=== PATIENT | female | born 1990 | race Hispanic/Latino ===

== ENCOUNTER 2017-01-25 22:50 | Emergency (ER) | payer MEDICAID ==
[2017-01-25] MEDS ORDERED: Albuterol-Ipratrop 3 mg / 0.5 (3 ml) UD INH STA (23:57)
[2017-01-26] MEDS ORDERED: Albuterol-Ipratrop 3 mg / 0.5 (3 ml) UD ONE (00:24)
--- NOTE | 2017-01-26 00:47 | C.PDOC ---
History Of Present Illness 26 y/o F c/o bilateral parasternal discomfort positionally and digitally reproducible for 2-3 days. With associated dry unproductive cough possibly related to asthma. Pt took regular albuterol with no improvement. Denies fever, chills, SOB, lightheadedness, diaphoresis, or any other complaints. Pt notes taking percocet for chronic chest discomfort. Time Seen by Provider: 01/25/17 23:50 Chief Complaint (Nursing): Shortness Of Breath History Per: Patient History/Exam Limitations: no limitations Onset/Duration Of Symptoms: Days Current Symptoms Are (Timing): Still Present Current Respiratory Medications: Albuterol Severity: Mild Associated Symptoms: denies: Fever, Chills, Sweating, Dizziness, Light- headedness Recent travel outside of the [place]: No Additional History Per: Patient Past Medical History Reviewed: Historical Data, Nursing Documentation, Vital Signs Vital Signs: Last Vital Signs Temp 98.3 F 01/26/17 01:06 Pulse 95 H 01/26/17 01:06 Resp 20 01/26/17 01:06 BP 123/84 01/26/17 01:06 Pulse Ox 99 01/26/17 06:31 - Medical History PMH: Asthma, Chronic Kidney Disease (kidney problem), Rheumatoid Arthritis Surgical History: - [facility] Procedures INJECT/INFUSE NEC (06/15/13) Family History: States: Unknown Family Hx - Social History Hx Tobacco Use: No Hx Alcohol Use: Yes Hx Substance Use: Yes - Immunization History Hx Tetanus Toxoid Vaccination: No Hx Influenza Vaccination: No Hx Pneumococcal Vaccination: No Review Of Systems Except As Marked, All Systems Reviewed And Found Negative. Constitutional: Negative for: Fever, Chills, Sweats Cardiovascular: Positive for: Chest Pain (Bilateral parasternal discomfort). Negative for: Light Headedness Respiratory: Negative for: Shortness of Breath Neurological: Negative for: Dizziness Physical Exam - Physical Exam Appears: Non-toxic, No Acute Distress, Other (Lethargic) Skin: Warm, Dry, No Rash Head: Atraumatic, Normacephalic Eye(s): bilateral: Abnormal Pupil (Pinpoint) Chest: Symmetrical, Tenderness (Bilateral parasternal area) Cardiovascular: Rhythm Regular Respiratory: Normal Breath Sounds, No Accessory Muscle Use, No Rales, No Rhonchi , No Wheezing Neurological/Psych: Oriented x3, Normal Speech ED Course And Treatment O2 Sat by Pulse Oximetry: 99 (RA) Pulse Ox Interpretation: Normal - Radiology CXR: Interpreted by Me CXR Interpretation: Yes: No Acute Disease Progress Note: prednisone, duoneb Reevaluation Time: 00:42 Reassessment Condition: Improved Medical Decision Making Medical Decision Making: Impression: 26 y/o F c/o bilateral parasternal discomfort positional digitally reproducable for 2-3 days [place] 90 [place] Percocet 10/325 each month regularly from PMD parasternal Costochondritis due to recent mild coughing ? related to asthma. clear lungs Pinpoint pupils due to regular percocet dosing from chronic pain due to Lupus- already on Plaquenil Disposition Doctor Will See Patient In The: Office Counseled Patient/Family Regarding: Studies Performed, Diagnosis - Disposition Referrals: Lila Cruz MD [Primary Care Provider] - Disposition: HOME/ ROUTINE Disposition Time: 00:49 Condition: GOOD Additional Instructions: Prednisone 40 daily for 4 more days Duoneb inhaled treatments duoneb every 3 hours Pepcid 20 mg @ night to prevent stomach irritation from the prednisone ice packs to the chest area 1/2 hour per hour, nothing hot. Follow up with Dr. Cruz in 2-3 days for re-evaluation. Consider other chronic pain syndrome regimens as the narcotics regimen is highly addictive and high risk for overdose Prescriptions: Albuterol/Ipratropium [Duoneb 3 MG/3 Ml-0.5 MG/3 Ml 3 Ml] 6 ml IH Q4H PRN #100 neb PRN Reason: asthma Prednisone [Deltasone] 40 mg PO DAILY #8 tablet Instructions: Costochondritis (ED) - Clinical Impression Clinical Impression: Cough, Chest pain - Scribe Statement The provider has reviewed the documentation as recorded by the Scribe Gera perez All medical record entries made by the Alvarezibe were at my direction and personally dictated by me. I have reviewed the chart and agree that the record accurately reflects my personal performance of the history, physical exam, medical decision making, and the department course for this patient. I have also personally directed, reviewed, and agree with the discharge instructions and disposition.
[2017-01-26 01:12] VITALS: BP 123/84; PULSE 95; RESP 20; TEMP 98.3
[2017-01-26 06:28] VITALS: O2SAT 99
--- NOTE | 2017-01-26 10:22 | RAD ---
HISTORY: As above. Chest pain. COMPARISON: No prior. FINDINGS: LUNGS: Mild venous congestion. Elevated right hemidiaphragm. Rounded nodular density at the right lung base may represent prominent nipple shadow. Correlation with nipple marker may be helpful. Mild patchy increased markings at the left lung base, nonspecific. Correlation with lateral view may be helpful. PLEURA: As above. CARDIOVASCULAR: Mild prominence of the heart. Nonspecific. OSSEOUS STRUCTURES: No significant abnormalities. VISUALIZED UPPER ABDOMEN: Normal. OTHER FINDINGS: None. IMPRESSION: Mild venous congestion. Elevated right hemidiaphragm. Rounded nodular density at the right lung base may represent prominent nipple shadow. Correlation with nipple marker may be helpful. Mild patchy increased markings at the left lung base, nonspecific. Correlation with lateral view may be helpful.
--- NOTE | 2017-01-26 14:00 | CARD ---
APPROVED REPORT EKG Measurement Heart [id number] <Conclusion> Normal sinus rhythm Low voltage QRS Borderline ECG
== END 2017-01-26 01:12 | disposition home or self-care (01) ==
LOC: SUPCPDRO 22:50 → C.ER 22:50
DX: R07.89 Other chest pain (principal); R05 Cough

== ENCOUNTER 2017-02-16 23:13 | Emergency (ER) | payer MEDICAID ==
[2017-02-16 23:50] VITALS: BP 109/69; PULSE 87; RESP 17; TEMP 97.9; O2SAT 99
--- NOTE | 2017-02-17 00:28 | C.PDOC ---
History Of Present Illness 26 year old female who presents to the ER with a complaint of a dry cough, sneezing, nasal congestion, and bilateral eye injection and discharge for the past 3 days. Patient states her baby has the same symptoms; denies SOB, fever, or chills. Time Seen by Provider: 02/16/17 23:53 Chief Complaint (Nursing): ENT Problem History Per: Patient History/Exam Limitations: no limitations Onset/Duration Of Symptoms: Days (3) Current Symptoms Are (Timing): Still Present Sick Contacts (Context): Family Member(s) Associated Symptoms: Cough, Nasal Congestion. denies: Fever, Chills, Sputum Ear Symptoms: Bilateral: None Recent travel outside of the [place]: No Past Medical History Reviewed: Historical Data, Nursing Documentation, Vital Signs Vital Signs: Last Vital Signs Temp 97.9 F 02/16/17 23:47 Pulse 87 02/16/17 23:47 Resp 17 02/16/17 23:47 BP 109/69 02/16/17 23:47 Pulse Ox 99 02/17/17 03:29 - Medical History PMH: Asthma, Chronic Kidney Disease (kidney problem), Rheumatoid Arthritis Surgical History: - [facility] Procedures INJECT/INFUSE NEC (06/15/13) Family History: States: Unknown Family Hx - Social History Hx Tobacco Use: No Hx Alcohol Use: Yes Hx Substance Use: Yes - Immunization History Hx Tetanus Toxoid Vaccination: No Hx Influenza Vaccination: No Hx Pneumococcal Vaccination: No Review Of Systems Constitutional: Negative for: Fever, Chills Eyes: Positive for: Redness, Other (Discharge) Respiratory: Positive for: Cough. Negative for: Shortness of Breath Physical Exam - Physical Exam Appears: Non-toxic, No Acute Distress Skin: Normal Color, Warm, Dry Head: Atraumatic, Normacephalic Eye(s): bilateral: Normal Inspection, PERRL, EOMI, Other (Crusting to lower eyelids, purulent discharge to bilateral nasal canthus, B/L minimal conjunctival injection.) Nose: Normal, Discharge (Clear) Oral Mucosa: Moist Throat: Normal, No Erythema, No Exudate Neck: Normal, Supple Chest: Symmetrical, No Tenderness Cardiovascular: Rhythm Regular, No Murmur Respiratory: Normal Breath Sounds, No Rales, No Rhonchi, No Wheezing Neurological/Psych: Oriented x3, Normal Speech, Normal Cognition ED Course And Treatment O2 Sat by Pulse Oximetry: 99 (Room air) Pulse Ox Interpretation: Normal Progress Note: Patient is resting comfortably, and is in no acute distress. Patient given Rx and was instructed to follow up with PMD in 1-2 days for further evaluation. Disposition - Disposition Referrals: Non [facility] Provider, [Primary Care Provider] - Disposition: HOME/ ROUTINE Disposition Time: 00:26 Condition: STABLE Additional Instructions: Please follow up with PMD Increase PO fuids Return to ER if worse Prescriptions: Benzonatate [Tessalon Perles] 100 mg PO TID #20 sgl Mometasone Furoate [Nasonex] 2 spray NS DAILY #1 bottle Tobramycin 0.3% [Tobrex 0.3% Opth Soln] 1 drop OU TID #1 bottle Instructions: Upper Respiratory Infection (ED) - Clinical Impression Clinical Impression: Upper respiratory infection, Conjunctivitis - Scribe Statement The provider has reviewed the documentation as recorded by the Scribtushar Boyd All medical record entries made by the Alvarezibtushar were at my direction and personally dictated by me. I have reviewed the chart and agree that the record accurately reflects my personal performance of the history, physical exam, medical decision making, and the department course for this patient. I have also personally directed, reviewed, and agree with the discharge instructions and disposition.
== END 2017-02-17 00:47 | disposition home or self-care (01) ==
LOC: SUPCPDRO 23:13 → C.ER 23:13
DX: J06.9 Acute upper respiratory infection, unspecified (principal); H10.9 Unspecified conjunctivitis; Z72.0 Tobacco use

== ENCOUNTER 2017-03-10 00:14 | Emergency (ER) | payer MEDICAID ==
--- NOTE | 2017-03-10 03:18 | C.PDOC ---
History Of Present Illness 26 year old female who presents to the ER with a complaint of nausea and generalized body aches. Patient is requesting pain medication; denies fever, chills, vomiting, or recent injury/trauma. Chief Complaint (Nursing): Pain, Chronic History Per: Patient History/Exam Limitations: no limitations Onset/Duration Of Symptoms: Hrs Current Symptoms Are (Timing): Still Present Recent travel outside of the [place]: No Past Medical History Reviewed: Historical Data, Nursing Documentation, Vital Signs Vital Signs: Last Vital Signs Temp 97.8 F 03/10/17 06:22 Pulse 76 03/10/17 06:22 Resp 16 03/10/17 06:22 BP 117/68 03/10/17 06:22 Pulse Ox 100 03/10/17 06:26 - Medical History PMH: Anxiety, Asthma, Post Traumatic Stress Disorder, Chronic Kidney Disease ( kidney problem), Rheumatoid Arthritis Surgical History: - [facility] Procedures INJECT/INFUSE NEC (06/15/13) Family History: States: Unknown Family Hx - Social History Hx Tobacco Use: No Hx Alcohol Use: Yes (denies this visit) Hx Substance Use: Yes (denies this visit) - Immunization History Hx Tetanus Toxoid Vaccination: No Hx Influenza Vaccination: No Hx Pneumococcal Vaccination: No Review Of Systems Constitutional: Negative for: Fever, Chills Gastrointestinal: Positive for: Nausea. Negative for: Vomiting, Diarrhea Musculoskeletal: Positive for: Other (Generalized body aches) Physical Exam - Physical Exam Appears: Non-toxic, No Acute Distress Skin: Normal Color, Warm, Dry Head: Atraumatic, Normacephalic Oral Mucosa: Moist Neck: Normal, Supple Chest: Symmetrical, No Tenderness Cardiovascular: Rhythm Regular, No Murmur Respiratory: Normal Breath Sounds, No Rales, No Rhonchi, No Wheezing Gastrointestinal/Abdominal: Soft, No Tenderness Neurological/Psych: Oriented x3, Normal Speech, Normal Cognition ED Course And Treatment - Laboratory Results Result Diagrams: 03/10/17 04:57 03/10/17 04:57 O2 Sat by Pulse Oximetry: 100 (Room air) Pulse Ox Interpretation: Normal Progress Note: 02:00 - Went to examine patient but she was sound asleep. Blood work and urinalysis ordered. Toradol, nubain, zofran, and IV fluids administered. On reevaluation, patient still feels nauseous. 06:16 - Patient states she feel better, will discharge home. Patient grew increasingly agitated when she was told she will not receive Rx for percocet. [facility] , patient was given Rx for percocet on 03/[facility]. Disposition Counseled Patient/Family Regarding: Diagnosis - Disposition Referrals: Lila Cruz MD [Primary Care Provider] - Disposition: HOME/ ROUTINE Disposition Time: 06:14 Condition: STABLE Prescriptions: Ondansetron ODT [Zofran ODT] 1 odt PO BID PRN #6 odt PRN Reason: Nausea/Vomiting Instructions: Acute Nausea and Vomiting (ED), Autoimmune Disease (ED) Forms: [employer] ([place]ymraes) - POA Present On Arrival: None - Clinical Impression Clinical Impression: Lupus, Body aches, Nausea - Scribe Statement The provider has reviewed the documentation as recorded by the Scribtushar Boyd All medical record entries made by the Scribe were at my direction and personally dictated by me. I have reviewed the chart and agree that the record accurately reflects my personal performance of the history, physical exam, medical decision making, and the department course for this patient. I have also personally directed, reviewed, and agree with the discharge instructions and disposition.
[2017-03-10] MEDS ORDERED: Nalbuphine 20 mg/ml Inj (1 ml) IVP STA (04:32)
[2017-03-10] MEDS ORDERED: Sodium Chloride 0.9% 1,000 ML IV ONE (04:32)
[2017-03-10 05:06] LABS: BASO % 0.3 % (0.0-2.0); EOS # 0.5 K/uL (0.0-0.7); EOS % 6.3 % (0.0-4.0); HEMATOCRIT 31.7 % (34.0-47.0); LYMPH # 2.8 K/uL (1.0-4.3); LYMPH % 34.7 % (20.0-40.0); MEAN CELL VOLUME 77.7 fL (81.0-99.0); MEAN CORPUSCULAR HEMOGLOBIN 25.4 pg (27.0-31.0); MEAN CORPUSCULAR HGB CONC 32.7 g/dL (33.0-37.0); MEAN PLATELET VOLUME 7.9 fL (7.2-11.7); MONO # 0.6 K/uL (0.0-0.8); MONO % 7.3 % (0.0-10.0); RED CELL DISTRIBUTION WIDTH 18.3 % (11.5-14.5); WHITE BLOOD COUNT 8.1 K/uL (4.8-10.8)
[2017-03-10 05:11] LABS: CHLORIDE 105 mmol/L (98-107); POTASSIUM 3.7 mmol/L (3.6-5.2); SODIUM 142 mmol/L (132-148)
[2017-03-10 05:12] LABS: RBC URINE 7 /hpf (0-3); URINE BACTERIA RARE (<OCC); URINE BILIRUBIN NEGATIVE (NEGATIVE); URINE BLOOD NEGATIVE (NEGATIVE); URINE COLOR Yellow (YELLOW); URINE GLUCOSE (UA) NORMAL (Normal); URINE KETONE NEGATIVE (NEGATIVE); URINE LEUKOCYTE ESTERASE 1+ Leu/uL (Negative); URINE PROTEIN 2+ mg/dL (NEGATIVE); WBC URINE 8 /hpf (0-5)
[2017-03-10 05:13] LABS: ALB/GLOB RATIO 0.9 (1.0-2.1); ALKALINE PHOSPHATASE 80 U/L (38-126); AST/SGOT 21 U/L (14-36); BILIRUBIN,TOTAL 0.4 mg/dL (0.2-1.3); BLOOD UREA NITROGEN 13 mg/dL (7-17); CARBON DIOXIDE 24 mmol/L (22-30); GFR AFRICAN-AMERICAN > 60; TOTAL PROTEIN 6.7 g/dL (6.3-8.3)
[2017-03-10 05:14] LABS: ALT/SGPT 25 U/L (9-52); GLUCOSE,RANDOM 86 mg/dL (65-105)
[2017-03-10 06:22] VITALS: BP 117/68; PULSE 76; RESP 16; TEMP 97.8
[2017-03-10 06:27] VITALS: O2SAT 100
== END 2017-03-10 06:32 | disposition home or self-care (01) ==
LOC: C.ER 00:14 → SUPCPDRO 00:14 → C.ER 06:32
DX: M32.9 Systemic lupus erythematosus, unspecified (principal); R11.0 Nausea
CPT/HCPCS: 80053; 80324; 80345; 80346; 80349; 80353; 80358; 80361; 81001; 83690; 83992; 85025; 96372; 96374; 96375; 99285; J1885; J2405; J7040

== ENCOUNTER 2017-08-19 15:20 | Emergency (ER) | payer MEDICAID ==
[2017-08-19] MEDS ORDERED: Sodium Chloride 0.9% 1,000 ML IV ONE (16:39)
[2017-08-19 16:57] LABS: SQUAMOUS EPITHIAL 2 /hpf (0-5); URINE BACTERIA OCC (<OCC); URINE BILIRUBIN NEGATIVE (NEGATIVE); URINE BLOOD TRACE (NEGATIVE); URINE CLARITY Clear (Clear); URINE COLOR Amber (YELLOW); URINE GLUCOSE (UA) NORMAL (Normal); URINE LEUKOCYTE ESTERASE 1+ Leu/uL (Negative); URINE NITRATE NEGATIVE (NEGATIVE); URINE PROTEIN 2+ mg/dL (NEGATIVE)
--- NOTE | 2017-08-19 17:00 | C.PDOC ---
History Of Present Illness 27 year old female who is & weeks , G 8 P1, presents to the ED for evaluation of vaginal spotting. Patient's LMP was on 06/29. Patient reports she has a PMHx of lupus, IGG nephropathy and rheumatoid arthritis. Patient denies fever, chills, nausea, vomit, abdominal pain, vaginal bleeding, back pain. Time Seen by Provider: 08/19/17 16:38 Chief Complaint (Nursing): Female Genitourinary History Per: Patient History/Exam Limitations: no limitations Onset/Duration Of Symptoms: Days Quality Of Discomfort: Other Associated Symptoms: Other (vaginal spotting) Alleviating Factors: None Additional History Per: Patient Abnormal Vaginal Bleeding: No Last Menstral Period: 06/29 : 8 Para: 1 Past Medical History Reviewed: Historical Data, Nursing Documentation, Vital Signs Vital Signs: Last Vital Signs Temp 99.2 F 08/19/17 16:02 Pulse 90 08/19/17 16:02 Resp 20 08/19/17 16:02 BP 121/70 08/19/17 16:02 Pulse Ox 100 08/19/17 19:07 - Medical History PMH: Anxiety, Asthma, Bipolar Disorder, Depression, Post Traumatic Stress Disorder, Chronic Kidney Disease (kidney problem), Rheumatoid Arthritis Surgical History: - [facility] Procedures INJECT/INFUSE NEC (06/15/13) Family History: States: Unknown Family Hx - Social History Hx Tobacco Use: No Hx Alcohol Use: Yes (denies this visit) Hx Substance Use: Yes (denies this visit) - Immunization History Hx Tetanus Toxoid Vaccination: No Hx Influenza Vaccination: Yes Hx Pneumococcal Vaccination: No Review Of Systems Constitutional: Negative for: Fever, Chills Cardiovascular: Negative for: Chest Pain, Palpitations Respiratory: Negative for: Cough, Shortness of Breath Gastrointestinal: Positive for: Abdominal Pain. Negative for: Nausea, Vomiting , Diarrhea Genitourinary: Negative for: Dysuria, Hematuria, Vaginal Discharge, Vaginal Bleeding Skin: Negative for: Rash Neurological: Negative for: Weakness, Numbness, Headache Physical Exam - Physical Exam Appears: Non-toxic, No Acute Distress Skin: Normal Color, Warm, Dry Head: Atraumatic, Normacephalic Eye(s): bilateral: Normal Inspection Nose: No Discharge, No Deformity Oral Mucosa: Moist Neck: Normal ROM, Supple Chest: Symmetrical Cardiovascular: Rhythm Regular, No Murmur Respiratory: Normal Breath Sounds, No Rales, No Rhonchi, No Wheezing Gastrointestinal/Abdominal: Soft, Tenderness (suprapubic ), No Guarding, No Rebound Extremity: Normal ROM, No Pedal Edema, No Calf Tenderness, No Deformity, No Swelling Neurological/Psych: Oriented x3, Normal Speech, Normal Cognition Gait: Steady ED Course And Treatment - Laboratory Results Result Diagrams: 08/19/17 17:01 Lab Interpretation: Normal Urine POC: Positive O2 Sat by Pulse Oximetry: 100 (On RA) Pulse Ox Interpretation: Normal - CT Scan/US No standard instances Other Rad Studies (CT/US): Read By Radiologist, Radiology Report Reviewed CT/US Interpretation: Findings: The uterus measures approximately 9.1 x 5.6 x 6.3 cm. Retroverted. Cervix length measures approximately 3.2 cm. There is a single intrauterine fetus present. 3 mm yolk sac. The gestational sac measures 1.7 cm and is compatible with a gestational age of 6 weeks 0 days. The crown- rump length measures 0.8 cm and is compatible with a gestational age of 6 weeks 5 days. 1.8 x 0.3 x 0.4 cm subchorionic hemorrhage. There is heart motion which measured 122.8 BPM. The right ovary measures 2.9 x 2.6 x 2.7 cm and contains 1.8 x 1.4 x 1.7 cm complex appearing cyst, corpus luteal cyst. The left ovary measures 2.6 x 2.1 x 2.0 cm. Blood flow was demonstrated to both ovaries. Impression: Live single intrauterine with estimated gestational age 6 weeks 0 days by gestational sac calculation and 6 weeks 5 days by crown-rump length calculation. heart rate 122.8 bpm. 1.1 x 0.3 x 0.4 cm subchorionic hemorrhage. Pelvic free fluid at the level of the cul-de- sac and bilateral adnexa. 1.8 x 1.4 x 1.7 cm complex right ovarian cyst, possibly corpus luteal cyst. Advise an anomaly screen at 16-18 weeks gestational age Progress Note: Patient provided with copy of labs and US. Patient advised to follow up with [facility] for evaluation of antibody K Reassessment Condition: Improved Medical Decision Making Medical Decision Making: Impression : vaginal spotting Plan: * Obstetrics US * UA * Labs * IV fluids Disposition - Disposition Referrals: Temo Talbert [Staff Provider] - [facility] [Outside] [facility] [Outside] Disposition: HOME/ ROUTINE Disposition Time: 19:15 Condition: STABLE Additional Instructions: Follow up with [facility] for further evaluation Return to ED if any increase symptoms Instructions: Threatened Miscarriage (ED) Forms: [employer] (Nepali) - Clinical Impression Clinical Impression: , Bleeding from vagina - PA / REHAB CONSULTANT / Resident Statement MD/DO has reviewed & agrees with the documentation as recorded. - Scribe Statement The provider has reviewed the documentation as recorded by the Scribe Jona Gonzalez All medical record entries made by the Scribe were at my direction and personally dictated by me. I have reviewed the chart and agree that the record accurately reflects my personal performance of the history, physical exam, medical decision making, and the department course for this patient. I have also personally directed, reviewed, and agree with the discharge instructions and disposition.
[2017-08-19 17:23] LABS: BLOOD UREA NITROGEN 12 mg/dL (7-17); GFR AFRICAN-AMERICAN > 60; GFR NON-AFRICAN AMERICAN > 60
--- NOTE | 2017-08-19 19:03 | US ---
Indication: Bleeding Comparison: OB , limited Technique: Real-time transabdominal pelvic ultrasound was performed. In addition a transvaginal pelvic ultrasound was necessary to better depict pelvic anatomy. Findings: The uterus measures approximately 9.1 x 5.6 x 6.3 cm. Retroverted. Cervix length measures approximately 3.2 cm. There is a single intrauterine fetus present. 3 mm yolk sac. The gestational sac measures 1.7 cm and is compatible with a gestational age of 6 weeks 0 days. The crown-rump length measures 0.8 cm and is compatible with a gestational age of 6 weeks 5 days. 1.8 x 0.3 x 0.4 cm subchorionic hemorrhage. There is heart motion which measured 122.8 BPM. The right ovary measures 2.9 x 2.6 x 2.7 cm and contains 1.8 x 1.4 x 1.7 cm complex appearing cyst, corpus luteal cyst. The left ovary measures 2.6 x 2.1 x 2.0 cm. Blood flow was demonstrated to both ovaries. Impression: Live single intrauterine with estimated gestational age 6 weeks 0 days by gestational sac calculation and 6 weeks 5 days by crown-rump length calculation. heart rate 122.8 bpm. 1.1 x 0.3 x 0.4 cm subchorionic hemorrhage. Pelvic free fluid at the level of the cul-de-sac and bilateral adnexa. 1.8 x 1.4 x 1.7 cm complex right ovarian cyst, possibly corpus luteal cyst. Advise an anomaly screen at 16-18 weeks gestational age
[2017-08-19 19:20] LABS: BASO % 0.3 % (0.0-2.0); EOS # 0.1 K/uL (0.0-0.7); EOS % 2.4 % (0.0-4.0); LYMPH # 1.4 K/uL (1.0-4.3); LYMPH % 23.2 % (20.0-40.0); MEAN CELL VOLUME 82.5 fL (81.0-99.0); MEAN CORPUSCULAR HEMOGLOBIN 27.8 pg (27.0-31.0); MEAN CORPUSCULAR HGB CONC 33.7 g/dL (33.0-37.0); MEAN PLATELET VOLUME 8.4 fL (7.2-11.7); MONO # 0.4 K/uL (0.0-0.8); MONO % 6.2 % (0.0-10.0); NEUT # 4.2 K/uL (1.8-7.0); NEUT % 67.9 % (50.0-75.0); RBC 3.98 Mil/uL (3.80-5.20); RED CELL DISTRIBUTION WIDTH 13.9 % (11.5-14.5); WHITE BLOOD COUNT 6.1 K/uL (4.8-10.8)
[2017-08-19 19:44] VITALS: BP 102/62; PULSE 82; RESP 16; TEMP 98.4; O2SAT 99
== END 2017-08-19 19:46 | disposition home or self-care (01) ==
LOC: C.ER 15:20
DX: O20.9 Hemorrhage in early pregnancy, unspecified (principal); Z3A.01 Less than 8 weeks gestation of pregnancy
CPT/HCPCS: 76805; 76817; 80048; 81001; 84702; 84703; 85025; 86850; 86870; 86886; 86900; 96360; 99284; J7040

== ENCOUNTER → 2018-06-13 20:01 | Emergency (ER) | payer MEDICAID | END | disposition left against medical advice (07) | LOC: C.ER 20:01 | DX: Z02.89 Encounter for other administrative examinations (principal) ==

== ENCOUNTER 2018-11-06 10:34 | Emergency (ER) | payer MEDICAID ==
[2018-11-06 10:46] VITALS: O2SAT 100
--- NOTE | 2018-11-06 10:56 | C.PDOC ---
History Of Present Illness 28 y/o female presents to ED complaining of SOB earlier today. Patient states she got up from the couch and went to see her daughter in another room but suddenly became SOB and lightheaded, and was shaking. Patient still complains of SOB now. Denies chest pain, fever, or cough. Patient recently found out that she is . Has history of lupus and DVTs in the past. Time Seen by Provider: 11/06/18 10:39 Chief Complaint (Nursing): Dizziness/Lightheaded History Per: Patient History/Exam Limitations: no limitations Onset/Duration Of Symptoms: Hrs Current Symptoms Are (Timing): Still Present Past Medical History Reviewed: Historical Data, Nursing Documentation, Vital Signs Vital Signs: Last Vital Signs Temp 98.5 F 11/06/18 10:41 Pulse 89 11/06/18 10:41 Resp 20 11/06/18 10:41 BP 103/59 L 11/06/18 10:41 Pulse Ox 100 11/06/18 10:41 - Medical History PMH: Anxiety, Asthma, Bipolar Disorder, Depression, Post Traumatic Stress Disorder, Chronic Kidney Disease (kidney problem), Rheumatoid Arthritis Surgical History: - [facility] Procedures INJECT/INFUSE NEC (06/15/13) Family History: States: No Known Family Hx - Social History Hx Tobacco Use: No Hx Alcohol Use: Yes (denies this visit) Hx Substance Use: No (denies this visit) - Immunization History Hx Tetanus Toxoid Vaccination: No Hx Influenza Vaccination: Yes (05/2018) Hx Pneumococcal Vaccination: No Review Of Systems Except As Marked, All Systems Reviewed And Found Negative. Constitutional: Negative for: Fever Cardiovascular: Positive for: Light Headedness. Negative for: Chest Pain Respiratory: Positive for: Shortness of Breath. Negative for: Cough Gastrointestinal: Negative for: Vomiting, Abdominal Pain Physical Exam - Physical Exam Appears: Non-toxic, No Acute Distress Skin: Warm, Dry Head: Atraumatic, Normacephalic Eye(s): bilateral: Normal Inspection Oral Mucosa: Moist Neck: Supple Cardiovascular: Rhythm Regular, No Murmur Respiratory: Normal Breath Sounds, No Rales, No Rhonchi, No Wheezing Gastrointestinal/Abdominal: Soft, No Tenderness Neurological/Psych: Oriented x3, Normal Speech, Normal Cognition Gait: Steady ED Course And Treatment - Laboratory Results Result Diagrams: 11/06/18 11:11 11/06/18 11:11 ECG: Interpreted By Me, Viewed By Me ECG Rhythm: Sinus Rhythm Interpretation Of ECG: No ST elevation. QT normal. Rate From EC O2 Sat by Pulse Oximetry: 100 (RA) Pulse Ox Interpretation: Normal Medical Decision Making Medical Decision Making: Plan: --EKG --Labs --UA Discussed with patient, D-dimer negative. SOB has resolved. Patient not tachycardic. PE unlikely. Patient asked to be discharged home, will follow up with PMD. Also has history of asthma and improved after albuterol treatment. Disposition - Disposition Referrals: Lila Cruz MD [Medical Doctor] - Disposition: HOME/ ROUTINE Disposition Time: 14:05 Condition: STABLE Additional Instructions: RETURN TO ER in acute changes Prescriptions: Albuterol HFA [Ventolin HFA 90 mcg/actuation (8 g)] 2 puff IH [id number] #1 puff Instructions: Shortness of Breath (Dyspnea) (DC) Forms: General Discharge Instructions, [facility] (Slovak) - Clinical Impression Clinical Impression: Dyspnea, Asthma - Scribe Statement The provider has reviewed the documentation as recorded by the Scribtushar Chapman Provider Attestation: All medical record entries made by the Scribe were at my direction and personally dictated by me. I have reviewed the chart and agree that the record accurately reflects my personal performance of the history, physical exam, medical decision making, and the department course for this patient. I have also personally directed, reviewed, and agree with the discharge instructions and disposition.
[2018-11-06 11:17] LABS: HCG,QUALITATIVE URINE POSITIVE (NEGATIVE)
[2018-11-06 11:20] LABS: BASO % 0.1 % (0.0-2.0); EOS # 0.1 K/uL (0.0-0.7); EOS % 1.4 % (0.0-4.0); HEMOGLOBIN 11.7 g/dL (11.0-16.0); LYMPH # 1.7 K/uL (1.0-4.3); LYMPH % 26.2 % (20.0-40.0); MEAN CELL VOLUME 81.8 fL (81.0-99.0); MEAN CORPUSCULAR HEMOGLOBIN 27.7 pg (27.0-31.0); MEAN CORPUSCULAR HGB CONC 33.9 g/dL (33.0-37.0); MEAN PLATELET VOLUME 8.6 fL (7.2-11.7); MONO # 0.4 K/uL (0.0-0.8); MONO % 5.7 % (0.0-10.0); NEUT # 4.3 K/uL (1.8-7.0); NEUT % 66.6 % (50.0-75.0); NRBC % 0.1 % (0.0-2.0); RBC 4.21 Mil/uL (3.80-5.20); RED CELL DISTRIBUTION WIDTH 13.2 % (11.5-14.5); WHITE BLOOD COUNT 6.4 K/uL (4.8-10.8)
[2018-11-06 11:27] LABS: SQUAMOUS EPITHIAL 8 /hpf (0-5); URINE BILIRUBIN NEGATIVE (NEGATIVE); URINE BLOOD NEGATIVE (NEGATIVE); URINE CLARITY Hazy (Clear); URINE COLOR Yellow (YELLOW); URINE GLUCOSE (UA) NORMAL (Normal); URINE LEUKOCYTE ESTERASE TRACE Leu/uL (Negative); URINE PROTEIN 2+ mg/dL (NEGATIVE)
[2018-11-06 11:32] LABS: ALB/GLOB RATIO 1.2 (1.0-2.1); ALBUMIN 3.7 g/dL (3.5-5.0); AST/SGOT 13 U/L (14-36); BLOOD UREA NITROGEN 12 mg/dL (7-17); CALCIUM 9.3 mg/dl (8.6-10.4); GFR NON-AFRICAN AMERICAN > 60
[2018-11-06 11:37] LABS: ALT/SGPT < 6 U/L (9-52)
[2018-11-06 11:42] LABS: BARBITURATES, UR NEGATIVE (NEGATIVE); BENZODIAZEPINES, UR NEGATIVE (NEGATIVE); OPIATES, UR NEGATIVE (NEGATIVE); PHENCYCLIDINE, UR NEGATIVE (NEGATIVE)
[2018-11-06] MEDS ORDERED: Albuterol-Ipratrop 3 mg / 0.5 (3 ml) UD INH STA (12:13)
[2018-11-06 12:16] VITALS: TEMP 98.4
[2018-11-06] MEDS ORDERED: Albuterol-Ipratrop 3 mg / 0.5 (3 ml) UD ONE (12:29)
[2018-11-06 14:18] VITALS: BP 120/83; PULSE 74; RESP 20
--- NOTE | 2018-11-09 15:34 | CARD ---
APPROVED REPORT Date of service: 11/06/2018 EKG Measurement Heart [id number] <Conclusion> Normal sinus rhythm Normal ECG
== END 2018-11-06 14:17 | disposition home or self-care (01) ==
LOC: C.ER 10:34
DX: J45.909 Unspecified asthma, uncomplicated (principal); R06.00 Dyspnea, unspecified; M06.9 Rheumatoid arthritis, unspecified; M32.9 Systemic lupus erythematosus, unspecified